=== PATIENT | female | born 2000 | race Caucasian/White ===

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

== ENCOUNTER 2023-05-08 | Emergency (ER) | payer BC, MEDICAID ==
[~2023-05-08] VITALS: Ht 152.4 cm; Wt 96.2 kg
[2023-05-08] VITALS: BP 139/81; TEMP 98.2; O2SAT 98
[~2023-05-08] MED LIST: MACR100C43 PO
== END 2023-05-08 02:25 | disposition left against medical advice (07) ==
LOC: M ED
DX: Z53.21 Procedure and treatment not carried out due to patient leaving prior to being seen by health care provider (principal)